=== PATIENT | female | born 1985 | race Caucasian/White ===

== ENCOUNTER 2018-07-05 | Inpatient (IN) ==
[2018-07-05] MEDS ORDERED: DEXTROSE 5%-LACTATED RINGERS 1,000 ML IV PRN (00:19)
[2018-07-05] MEDS ORDERED: RINGER'S SOLUTION,LACTATED 1,000 ML IV ONE (00:19)
[2018-07-05] MEDS ORDERED: ONDANSETRON 4 MG TAB.RAPDIS PO PRN (00:19)
[2018-07-05] MEDS ORDERED: OXYTOCIN/DEXTROSE 5%-WATER 30 UNITS/500 ML BAG IV ONE (00:19)
[2018-07-05] MEDS: MISOPROSTOL 100 MCG TABLET VG PRN ×2 (00:47→04:55)
[2018-07-05 00:56] LABS: Cocaine Ur Negative (NEGATIVE); Urine Barbiturate Negative (NEGATIVE); Urine Benzodiazepines Negative (NEGATIVE); Urine Opiates Negative (NEGATIVE); Urine PCP Negative (NEGATIVE); Urine THC Negative (NEGATIVE)
[2018-07-05] MEDS ORDERED: BUPIVACAINE HCL/0.9 % NACL/PF 250 ML EP PRN (08:48)
[2018-07-05] MEDS ORDERED: ONDANSETRON HCL/PF 2 MG/ML VIAL IV PRN (08:48)
[2018-07-05] MEDS ORDERED: NALOXONE HCL 1 MG/1 ML SYRG IV PRN (08:48)
[2018-07-05] MEDS ORDERED: fentaNYL CITRATE/PF 50 MCG/ML AMPUL IT SCH (09:00)
--- NOTE | 2018-07-05 09:16 | HP ---
Chief Complaint - Chief Complaint Date of Service: 07/05/18 Time of Service: 09:15 Chief Complaint: Induction of labor for LGA History of Present Illness: 32 yo at 39 2/7 weeks presents for induction of labor due to LGA baby and h/o shoulder dystocia. This complicated by h/o shoulder dystocia (4140g) -This baby was estimated to weigh 3443 on 06/28/18 and pelviectasis. Rh positive Rubella immune GBS negative Medical History (Updated 07/05/18 @ 15:48 by Ruthie Fisher RN) Dysmenorrhea Onset Date: ~03/17/13 Shingles Onset Date: ~12/2012 [place] teeth extracted Onset Date: ~2003 Asthma Onset Date: Unknown sports induced as child Family History: Family History (Updated 12/01/17 @ 13:26 by Wellington Pinto RN) Sister Ovarian cyst Grandfather Osteoarthritis maternal Dementia Parkinsons disease Grandmother Osteoarthritis maternal Grandmother Cancer breast Grandfather Cancer pancreatic Social History: Preferred Language Turkmen Do you have any lutheran or No cultural preference? Smoking Status Never smoker Abuse History No History of abuse Psych History No pertinent hx (Last Updated 06/28/18 @ 15:46 by Shaq Pavon DO) No Social History Section defined Review Of Systems (GEN) - Review of Systems Generalized/Overall Review: Present: No Symptoms Reported EENTM: Present: No Symptoms Reported Respiratory: Present: No Symptoms Reported Cardiac: Present: No Symptoms Reported Abdominal: Present: No Symptoms Reported Genitourinary: Present: No Symptoms Reported Musculoskeletal: Present: No Symptoms Reported Neurological: Present: No Symptoms Reported Skin: Present: No Symptoms Reported Endocrine: Present: No Symptoms Reported Allergies/Adverse Reactions: Allergies Allergy/AdvReac Type Severity Reaction Status Date / Time No Known Allergies Allergy Verified 07/05/18 00:04 Home Medications: HOME MEDICATIONS Vits96/Iron Fum/Folic [ S] 1 tab PO DAILY 08/02/12 [Last Taken 07/04/18] Bacillus coagulans 10 billion cell capsule,delayed release 1 cell PO DAILY 11/03/17 [Last Taken 07/04/18] calcium carbonate-vitamin D3 600 mg (1,500 mg)-800 unit tablet 1 tab PO DAILY 02/02/18 [Last Taken 07/04/18] docusate sodium 100 mg capsule 100 mg PO HS 06/14/18 [Last Taken 07/04/18] Exam - Exam Vital Signs: Vital Signs - Last Taken Temp 36.6 C 07/05/18 00:07 Pulse 84 07/05/18 00:07 Resp 16 07/05/18 00:07 BP 113/66 07/05/18 00:07 Pulse Ox 97 07/05/18 00:07 Constitutional: Present: Alert, Oriented x3, Cooperative, No distress ENT Exam: Present: hearing grossly normal Breasts: Present: Exam deferred Respiratory: Present: lungs clear, no respiratory distress Cardiovascular/Chest: Present: regular rate, rhythm, no edema Abdomen: Present: soft, nontender, other - gravid /Rectal: Present: Other - cervix 1/40/-2 Extremity: Present: no pedal edema, no calf tenderness Skin Exam: Present: normal color, warm/dry, no cyanosis Lymphatic: Present: no adenopathy Neurologic: Present: alert, normal mood/affect, oriented x 3 Appearance: Present: appropriate appearance, appropriate insight Eye contact: Present: cooperative, good eye contact Thoughts: Present: normal thought pattern Diagnostic Studies: Laboratory Results Negative (NEGATIVE) 07/05/18 00:35 Negative (NEGATIVE) 07/05/18 00:35 Ur Phencyclidine Scrn Negative (NEGATIVE) 07/05/18 00:35 Urine Amphetamine Negative (NEGATIVE) 07/05/18 00:35 U Benzodiazepines Scrn Negative (NEGATIVE) 07/05/18 00:35 Negative (NEGATIVE) 07/05/18 00:35 Negative (NEGATIVE) 07/05/18 00:35 Assessment/Plan - Assessment/Plan (1) Encounter for induction of labor Assessment: Admit for induction of labor. Epidural PRN. Problem: Acute (2) History of shoulder dystocia in prior Problem: Chronic
--- NOTE | 2018-07-05 09:18 | PN ---
Progess Note - Interim Date: 07/05/18 Time: 09:17 Narrative: 07/05/18 09:17 Patient becoming more uncomfortable with contractions Vital signs stable. Status post 2 doses of Cytotec. FHT:150 baseline, reassuring Contractions q 24 min Cervix: 4/70/-2, AROM-clear at 0830 Impression: Intrauterine at 39-2/7 weeks, induction of labor Plan: Continue present plan. Epidural when desires.
[2018-07-05] MEDS ORDERED: LIDOCAINE HCL/EPINEPHRINE 20 ML VIAL ONE (09:55)
--- NOTE | 2018-07-05 09:57 | ANES ---
Anesthesia Pre Procedure Eval Vitals/Labs: Last Vital Signs Temp 36.6 C 07/05/18 09:45 Pulse 84 07/05/18 09:45 Resp 22 H 07/05/18 09:45 BP 119/74 07/05/18 09:45 Pulse Ox 100 07/05/18 09:45 HOME MEDICATIONS Vits96/Iron Fum/Folic [ S] 1 tab PO DAILY 08/02/12 [Last Taken 07/04/18] Bacillus coagulans 10 billion cell capsule,delayed release 1 cell PO DAILY 11/03/17 [Last Taken 07/04/18] calcium carbonate-vitamin D3 600 mg (1,500 mg)-800 unit tablet 1 tab PO DAILY 02/02/18 [Last Taken 07/04/18] docusate sodium 100 mg capsule 100 mg PO HS 06/14/18 [Last Taken 07/04/18] Allergies/Adverse Reactions: Allergies Allergy/AdvReac Type Severity Reaction Status Date / Time No Known Allergies Allergy Verified 07/05/18 00:04 - Planned Procedure Planned Procedure: INDUCTION Medication List Reviewed:: Yes Allergies Verified: Yes Medical History (Updated 07/05/18 @ 09:16 by Shaq Pavon DO) Dysmenorrhea Onset Date: ~03/17/13 Shingles Onset Date: ~12/2012 [place] teeth extracted Onset Date: ~2003 Asthma Onset Date: Unknown sports induced as child Family History (Updated 12/01/17 @ 13:26 by Wellington Pinto RN) Sister Ovarian cyst Grandfather Osteoarthritis maternal Dementia Parkinsons disease Grandmother Osteoarthritis maternal Grandmother Cancer breast Grandfather Cancer pancreatic - Family Anesthesia History Family History:: no untoward family reactions to anesthesia, no familial bleeding tendencies, no family history of clotting disorders, no family history of premature - Airway/Neck/Teeth Within Normal Limits:: Yes Teeth Condition: intact Neck Exam: full range of motion Mallampatti Score: 2 Thyromental (T-M) distance: > 6 cm Mandibulo Hyoid distance: > 3 cm - Respiratory Respiratory Physical: lungs clear Sleep Apnea currently treated: No Sleep Apnea by current assessment: No - Cardiovascular Heart Sounds: S1 & S2, Regular - Anesthesia Assessment and Plan ASA Class: PS, II, E Anesthesia Type Plan: Epidural - CSE for labor analgesia
--- NOTE | 2018-07-05 10:14 | ANES ---
Post Anesthesia Discharge - Transfer of Care Transfer of Care handoff given to nurse: Yes - Discharge from PACU Discharge from PACU when meets criteria: Yes - Comfortable after CSE.
--- NOTE | 2018-07-05 10:16 | ANES ---
Anesthesia Procedure Note Procedure Note: ANESTHESIA PROCEDURE NOTE Date of Procedure: 07/05/2018 Time of procedure: 949. Performed by: Jorden Salmeron CRNA, MSN Mortuary Technician: Abigail Calix RN. Preprocedure diagnosis: Active labor, labor pain. Post procedure diagnosis: Same. Procedure:Epidural for labor analgesia L3 4. Indications: Labor pain. Findings: See below. Details of the procedure: The patient was placed on the side of the bed in sitting positionand prepped with DuraPrep then draped in a sterile fashion. Lidocaine 1% was infiltrated to the skin and subcutaneous tissues at the level of the L3 4 interspace. An 18-gauge Touhy needle was used to approach the epidural space with loss of resistance technique. Once loss of resistance was achieved a 27-gauge spinal needle was passed through the epidural needle and CSF was contacted. After CSF returned, 20 mcg of fentanyl was injected in the spinal needle was removed the epidural catheter was then threaded approximately 4 cm in the epidural needle was removed. The catheter was taped in place and after careful aspiration 3 mL of 1.5% lidocaine with 1-200,000 epinephrine was injected without change in maternal heart rate or sensorium. . EBL: Minimal. Fluids: N/A. Specimen: N/A. Post procedure condition: The patient tolerated the procedure well with good rel ief. No complications were noted. Thank you for this consultation. Jorden Salmeron CRNA, MSN
--- NOTE | 2018-07-05 10:31 | ANES ---
Post Anesthesia Assessment - Vital Signs Vitals: Last Vital Signs Temp 36.6 C 07/05/18 09:45 Pulse 84 07/05/18 09:45 Resp 22 H 07/05/18 09:45 BP 119/74 07/05/18 09:45 Pulse Ox 100 07/05/18 09:45 Airway Patency: Normal - Mental Status Level Of Consciousness: Awake, Alert, Appropriate - Pain Level Pain Score: 0 - N/V Assessment Nausea/Vomiting Presence: None Dehydration:: No
[2018-07-05] MEDS: OXYTOCIN/DEXTROSE 5%-WATER 30 UNITS/500 ML BAG IV ONE ×2 (11:29→14:04)
[2018-07-05] MEDS ORDERED: SENNOSIDES 8.6 MG TABLET PO PRN (11:39)
[2018-07-05] MEDS ORDERED: BENZOCAINE/MENTHOL 81 SPRAY CAN TP PRN (11:39)
[2018-07-05] MEDS ORDERED: GLYCERIN/WITCH HAZEL LEAF 40 APPL BOX TP PRN (11:39)
[2018-07-05] MEDS ORDERED: oxyCODONE HCL/ACETAMINOPHEN 1 TAB TABLET PO PRN ×2 (11:39)
[2018-07-05] MEDS ORDERED: HYDROCORTISONE 30 APPL TUBE TP PRN (11:39)
[2018-07-05] MEDS ORDERED: BISACODYL 10 MG SUPP.RECT RC PRN (11:39)
--- NOTE | 2018-07-05 11:43 | OR ---
Operative Report - Dictated Report Narrative: [Spontaneous vaginal delivery of viable male at 1126 on 07/05/2018 with Apgars 7 and 9, weighing 3764 g in OA position. Patient took approximately 1 minute to deliver the entire baby - she had to continue pushing all the way until delivery of the buttocks. There was terminal meconium. Cord clamping delayed approximately 30 seconds Placenta delivered complete, intact, with three vessel cord Estimated blood loss: less than 50 ml Anesthesia: epidural Lacerations: First-degree vaginal laceration repaired with 3-0 Vicryl Rapide.
[2018-07-05] MEDS: IBUPROFEN 800 MG TABLET PO PRN ×2 (13:23→20:37)
--- NOTE | 2018-07-05 18:23 | PN ---
Progess Note - Interim Date: 07/05/18 Time: 18:23 History for MU Definition: * The number of deliveries resulting in a live the patient experienced prior to current hospitalization * The previous delivery of live twins or any live multiple gestation is considered one live event. *If primagravida or nulliparous is documented select zero for the number of previous live births. Live Events: 2
[2018-07-05] MEDS: DOCUSATE SODIUM 100 MG CAPSULE PO SCH (20:37)
[2018-07-05] MEDS ORDERED: DOCUSATE SODIUM 100 MG CAPSULE PO SCH (21:00)
[2018-07-06] MEDS: IBUPROFEN 800 MG TABLET PO PRN ×4 (02:35→23:50)
[2018-07-06] MEDS: DOCUSATE SODIUM 100 MG CAPSULE PO SCH ×2 (08:02→20:07)
[2018-07-06] MEDS: PRENATAL VITS96/IRON FUM/FOLIC 1 TAB TABLET PO SCH (08:02)
[2018-07-06] MEDS: LACTOBACILLUS ACIDOPHILUS 1 EACH CAPSULE PO SCH (10:16)
[2018-07-06] MEDS: CALCIUM CARBONATE/VITAMIN D3 1 TAB TABLET PO SCH (10:16)
--- NOTE | 2018-07-06 10:24 | PN ---
Subjective - Date and Time Seen Date: 07/06/18 Time: 10:24 Objective - Vitals Vitals: Last Vital Signs Temp 37.3 C 07/06/18 07:05 Pulse 87 07/06/18 07:05 Resp 18 07/06/18 07:05 BP 112/59 07/06/18 07:05 Pulse Ox 97 07/06/18 07:05 Patient denies complaints. Breast-feeding Lochia wnl Abdomen - soft, nontender Uterus - firm, at umbilicus. No calf tenderness Impression: day #1 - s/p spontaneous vaginal delivery. Plan: Continue routine care Assessment/Plan - Problems/Diagnosis (1) Encounter for induction of labor Problem: Acute (2) History of shoulder dystocia in prior Problem: Chronic
[2018-07-07 08:01] VITALS: BP 110/60
[2018-07-07] MEDS: CALCIUM CARBONATE/VITAMIN D3 1 TAB TABLET PO SCH (10:46)
[2018-07-07] MEDS: LACTOBACILLUS ACIDOPHILUS 1 EACH CAPSULE PO SCH (10:46)
[2018-07-07] MEDS: DOCUSATE SODIUM 100 MG CAPSULE PO SCH (10:46)
[2018-07-07] MEDS: PRENATAL VITS96/IRON FUM/FOLIC 1 TAB TABLET PO SCH (10:46)
[2018-07-07] MEDS: IBUPROFEN 800 MG TABLET PO PRN (10:46)
--- NOTE | 2018-07-07 12:33 | PN ---
Subjective - Date and Time Seen Date: 07/07/18 Time: 12:33 Objective - Vitals Vitals: Last Vital Signs Temp 36.6 C 07/07/18 07:50 Pulse 94 07/07/18 07:50 Resp 20 07/07/18 07:50 BP 110/60 07/07/18 07:50 Pulse Ox 96 07/07/18 07:50 Patient denies complaints. Breast-feeding well Lochia wnl Abdomen - soft, nontender Uterus - firm, at umbilicus - 2 No calf tenderness Impression: day #2 - s/p spontaneous vaginal delivery. Plan: Routine discharge instructions Assessment/Plan - Problems/Diagnosis (1) Encounter for induction of labor Problem: Acute (2) History of shoulder dystocia in prior Problem: Chronic
== END 2018-07-07 12:10 | disposition home or self-care (01) | DRG 807 ==
LOC: OB
PROVIDERS: ADMIT Obstetrics & Gynecology; ATTEND Obstetrics & Gynecology
CPT/HCPCS: 59025; 80307